=== PATIENT | male | born 1955 | race African-American/Black ===

== ENCOUNTER 2023-06-04 15:12 | Emergency (ER) | payer MEDICARE ==
[~2023-06-04] VITALS: Ht 172.7 cm; Wt 100.0 kg
[2023-06-04 15:17] VITALS: TEMP 98.7; O2SAT 100
[2023-06-04 17:39] VITALS: BP 139/112; PULSE 87; RESP 17
[2023-06-04] MEDS ORDERED: IBUPROFEN 600MG TABLET PO STA (17:39)
[2023-06-04] MEDS ORDERED: TETRACAINE 0.5% OPHTH DROPS 4ML BOTHEYE ONE (17:45)
[2023-06-04] MEDS ORDERED: BALANCED SALT IRRIG SOLN 15ML IR ONE (17:45)
[2023-06-04] MEDS ORDERED: FLUORESCEIN SODIUM 1MG/STRIP BOTHEYE ONE (17:45)
[2023-06-04] MEDS ORDERED: OCUFLX EACHEYE (18:51)
[2023-06-04] MEDS ORDERED: NAPR-681 PO (18:51)
== END 2023-06-04 19:41 | disposition home or self-care (01) ==
LOC: ER 15:31
DX: H10.33 Unspecified acute conjunctivitis, bilateral (principal)
CPT/HCPCS: 99283